=== PATIENT | female | born 1950 | race African-American/Black ===

== ENCOUNTER 2017-01-27 13:57 | Emergency (ER) | payer OTHER ==
[~2017-01-27] VITALS: Ht 165.1 cm; Wt 85.0 kg
[2017-01-27] MEDS ORDERED: SODIUM CHLORIDE 0.9% 1,000 ML IV ONE ×2 (14:21→15:30)
[2017-01-27 14:50] LABS: BASOPHILS % 0.8 % (0.0-2.0); EOSINOPHILS % 1.2 % (0.0-5.0); HEMATOCRIT. 42.1 % (36.0-48.0); HEMOGLOBIN. 14.3 g/dL (12.0-16.0); LYMPHOCYTES % 27.8 % (20.0-50.0); MEAN CORPUSCULAR HEMOGLOBIN 29.7 pg (28.0-32.0); MEAN CORPUSCULAR VOLUME 87.5 fL (81.0-99.0); MEAN PLATELET VOLUME 9.7 fl (7.4-10.4); MONOCYTES % 5.5 % (2.0-8.0); NEUTROPHILS % 64.7 % (40.0-76.0); PLATELET 251 x1000/uL (130-400); RED BLOOD CELL COUNT 4.81 mill/uL (4.2-5.4); RED CELL DISTRIBUTION WIDTH 13.5 % (11.6-14.6)
[2017-01-27 14:54] LABS: CHLORIDE 100 mEq/L (98-107)
[2017-01-27 15:02] LABS: CARBON DIOXIDE 24 mEq/L (21-32)
[2017-01-27 15:03] LABS: BETA HYDROXYBUTYRATE 0.2 mMol/L (0.0-0.3)
[2017-01-27 17:17] VITALS: BP 137/88
== END 2017-01-27 17:18 | disposition home or self-care (01) ==
LOC: ER 14:05
DX: E11.65 Type 2 diabetes mellitus with hyperglycemia (principal); E78.5 Hyperlipidemia, unspecified; E78.00 Pure hypercholesterolemia, unspecified; Z91.14 Patient's other noncompliance with medication regimen
CPT/HCPCS: 36415; 80053; 82010; 82962; 83690; 85025; 99284; J7030

== ENCOUNTER 2018-08-11 13:04 | Emergency (ER) | payer MEDICARE, OTHER ==
[~2018-08-11] VITALS: Ht 177.8 cm; Wt 81.0 kg
[2018-08-11 14:08] LABS: CHLORIDE 105 mEq/L (98-107)
[2018-08-11 14:18] LABS: BASOPHILS % 0.7 % (0.0-2.0); EOSINOPHILS % 2.1 % (0.0-5.0); HEMOGLOBIN. 13.9 g/dL (12.0-16.0); LYMPHOCYTES % 25.1 % (20.0-50.0); MEAN CORPUSCULAR HEMOGLOBIN 30.1 pg (28.0-32.0); MEAN PLATELET VOLUME 9.7 fl (7.4-10.4); MONOCYTES % 6.6 % (2.0-8.0); NEUTROPHILS % 65.5 % (40.0-76.0); PLATELET 271 x1000/uL (130-400); RED BLOOD CELL COUNT 4.62 mill/uL (4.2-5.4); RED CELL DISTRIBUTION WIDTH 13.9 % (11.6-14.6)
[2018-08-11] MEDS ORDERED: ASPIRIN 325MG EC TABLET PO ONE (15:00)
[2018-08-11] MEDS ORDERED: ACETAMINOPHEN WITH CODEINE 120-12MG/5ML UDC PO ONE (15:00)
[2018-08-11 18:30] VITALS: BP 132/76
== END 2018-08-11 18:30 | disposition left against medical advice (07) ==
LOC: ER 13:04 → EDBEDREQ 15:01 → ENRESERV 15:34 → ER 18:30 → CANBEDREQ 08-13 17:10
DX: I20.0 Unstable angina (principal); R07.89 Other chest pain; E11.65 Type 2 diabetes mellitus with hyperglycemia; J98.11 Atelectasis
CPT/HCPCS: 36415; 71045; 84484; 87804; 93005; 99284

== ENCOUNTER 2018-08-17 16:33 | Inpatient (IN) | payer MEDICARE, OTHER ==
[~2018-08-17] VITALS: Ht 154.9 cm; Wt 81.6 kg
[2018-08-17] MEDS ORDERED: ASPI-1159 PO (16:48)
[2018-08-17] MEDS ORDERED: GLIP10TA10 PO (16:48)
[2018-08-17] MEDS ORDERED: SITA50TA3 PO (16:49)
[2018-08-17] MEDS ORDERED: ALBUTEROL (0.083%) 2.5MG/3ML NEB HHN STA (17:02)
[2018-08-17 17:39] LABS: BASOPHILS % 0.6 % (0.0-2.0); EOSINOPHILS % 3.6 % (0.0-5.0); HEMATOCRIT. 42.5 % (36.0-48.0); HEMOGLOBIN. 14.1 g/dL (12.0-16.0); LYMPHOCYTES % 35.4 % (20.0-50.0); MEAN CORPUSCULAR HEMOGLOBIN 30.1 pg (28.0-32.0); MEAN CORPUSCULAR VOLUME 90.5 fL (81.0-99.0); MEAN PLATELET VOLUME 9.2 fl (7.4-10.4); MONOCYTES % 8.5 % (2.0-8.0); NEUTROPHILS % 51.9 % (40.0-76.0); PLATELET 316 x1000/uL (130-400); RED BLOOD CELL COUNT 4.69 mill/uL (4.2-5.4); RED CELL DISTRIBUTION WIDTH 13.7 % (11.6-14.6)
[2018-08-17 17:47] LABS: PROTHROMBIN TIME 9.6 sec (9.1-11.1)
[2018-08-17 17:51] LABS: CHLORIDE 99 mEq/L (98-107)
[2018-08-17] MEDS ORDERED: AZITHROMYCIN 500 MG in DEXT 5% WATER 250 ML IV STA (18:14)
[2018-08-17] MEDS ORDERED: SODIUM CHLORIDE 0.9% 1,000 ML IV ONE (18:19)
[2018-08-17] MEDS ORDERED: HYDROCODONE/ACETAMINOPHEN 5/325MG TABLET PO PRN (19:45)
[2018-08-17] MEDS ORDERED: DEXTROSE 50% WATER 50ML SYRINGE IV PRN (19:45)
[2018-08-17] MEDS ORDERED: HYDROMORPHONE HCL/PF 2MG/ML CPJ IV PRN (19:45)
[2018-08-17] MEDS ORDERED: ONDANSETRON HCL 4MG/2ML INJ IV PRN (20:00)
[2018-08-17] MEDS ORDERED: LORAZEPAM 2MG/ML CPJ IV PRN (20:00)
[2018-08-17] MEDS ORDERED: DOCUSATE SODIUM 100MG CAPSULE PO PRN (20:00)
[2018-08-17] MEDS ORDERED: CLONIDINE 0.1MG TABLET PO PRN (20:00)
[2018-08-17] MEDS ORDERED: ACETAMINOPHEN 325MG TABLET PO PRN (20:00)
[2018-08-17] MEDS ORDERED: NA PHOS,M-B/NA PHOS,DI-BA ENEMA 118ML PR PRN (20:00)
[2018-08-17] MEDS ORDERED: MAGNESIUM/ALUMINUM HYDROXIDE/SIMETHICONE 30ML UDC PO PRN (20:00)
[2018-08-17 20:57] LABS: CLARITY URINE CLEAR (CLEAR); COLOR URINE YELLOW (YELLOW); KETONES URINE NEGATIVE (NEGATIVE); LEUKOCYTE ESTERASE URINE NEGATIVE (NEGATIVE); NITRITE URINE NEGATIVE (NEGATIVE); OCCULT BLOOD URINE NEGATIVE (NEGATIVE); PH URINE 5.5 (4.5-8.0); PROTEIN URINE NEGATIVE (NEGATIVE); SPECIFIC GRAVITY URINE 1.015 (1.005-1.030); UROBILINOGEN URINE 0.2 E.U./dL (0.2-1.0)
[2018-08-17] MEDS: BLOOD SUGAR DIAGNOSTIC STRIP TEST SCH (21:00)
[2018-08-17] MEDS: INSULIN LISPRO 100 UNITS/ML SUBCUT SCH (21:03)
[2018-08-17 21:20] VITALS: BP 145/71
[2018-08-17 21:30] VITALS: BP 145/71
[2018-08-17] MEDS: SODIUM CHLORIDE 0.9% INJ 3ML FLUSH IVF SCH (22:00)
[2018-08-18] VITALS: BP 117/55
[2018-08-18] MEDS: GUAIFENESIN 200MG/10ML SUGAR FREE UDC PO PRN ×2 (02:51→20:07)
[2018-08-18] MEDS: SODIUM CHLORIDE 0.9% 1,000 ML IV SCH ×2 (02:51→17:18)
[2018-08-18 04:00] VITALS: BP 118/59
[2018-08-18] MEDS: IPRATROPIUM/ALBUTEROL 0.5-3(2.5)MG/3ML NEB INH PRN (05:50)
[2018-08-18] MEDS: SODIUM CHLORIDE 0.9% INJ 3ML FLUSH IVF SCH ×3 (06:05→21:09)
[2018-08-18] MEDS: BLOOD SUGAR DIAGNOSTIC STRIP TEST SCH ×4 (06:09→20:10)
[2018-08-18 07:08] LABS: CHLORIDE 104 mEq/L (98-107)
[2018-08-18 07:16] LABS: BASOPHILS % 0.8 % (0.0-2.0); EOSINOPHILS % 4.5 % (0.0-5.0); HEMATOCRIT. 38.3 % (36.0-48.0); HEMOGLOBIN. 12.9 g/dL (12.0-16.0); LYMPHOCYTES % 38.3 % (20.0-50.0); MEAN CORPUSCULAR HEMOGLOBIN 30.5 pg (28.0-32.0); MEAN CORPUSCULAR VOLUME 90.6 fL (81.0-99.0); MEAN PLATELET VOLUME 9.1 fl (7.4-10.4); MONOCYTES % 8.8 % (2.0-8.0); NEUTROPHILS % 47.6 % (40.0-76.0); PLATELET 307 x1000/uL (130-400); RED BLOOD CELL COUNT 4.23 mill/uL (4.2-5.4); RED CELL DISTRIBUTION WIDTH 13.8 % (11.6-14.6)
[2018-08-18 07:22] LABS: LDL CHOLESTEROL 149 mg/dL (5-100)
[2018-08-18 07:23] LABS: HDL CHOLESTEROL 27 mg/dL (40-59)
[2018-08-18 08:00] VITALS: BP 127/71
[2018-08-18] MEDS: ENOXAPARIN 40MG/0.4ML SYR SUBCUT SCH (08:52)
[2018-08-18] MEDS: ASPIRIN 81MG EC TABLET PO SCH (08:52)
[2018-08-18] MEDS: INSULIN LISPRO 100 UNITS/ML SUBCUT SCH ×4 (08:58→20:15)
[2018-08-18 12:00] VITALS: BP 121/62
[2018-08-18 16:00] VITALS: BP 108/66
[2018-08-18] MEDS ORDERED: AZITHROMYCIN 500 MG in DEXT 5% WATER 250 ML IV SCH ×2 (16:00→18:00)
[2018-08-18 20:00] VITALS: BP 115/67
[2018-08-19] VITALS: BP 126/69
[2018-08-19] MEDS: IPRATROPIUM/ALBUTEROL 0.5-3(2.5)MG/3ML NEB INH PRN (02:42)
[2018-08-19 04:00] VITALS: BP 121/52
[2018-08-19] MEDS: SODIUM CHLORIDE 0.9% INJ 3ML FLUSH IVF SCH (05:17)
[2018-08-19] MEDS: BLOOD SUGAR DIAGNOSTIC STRIP TEST SCH (07:25)
[2018-08-19] MEDS: ASPIRIN 81MG EC TABLET PO SCH (08:12)
[2018-08-19] MEDS: ENOXAPARIN 40MG/0.4ML SYR SUBCUT SCH (08:12)
[2018-08-19] MEDS: INSULIN LISPRO 100 UNITS/ML SUBCUT SCH (08:15)
== END 2018-08-19 10:43 | disposition home or self-care (01) | DRG 145 ==
LOC: ER 16:33 → 6EST 18:20 → EDBEDREQ 18:23 → EDBEDREQSVC 18:23 → ENRESERV 19:59
PROVIDERS: ADMIT Internal Medicine; ATTEND Internal Medicine
DX: J20.9 Acute bronchitis, unspecified (principal); E87.2 Acidosis; J21.9 Acute bronchiolitis, unspecified; E11.9 Type 2 diabetes mellitus without complications; Z79.84 Long term (current) use of oral hypoglycemic drugs; Z79.82 Long term (current) use of aspirin
CPT/HCPCS: 36415; 71045; 80061; 82962; 83605; 84145; 84484; 87804; 93005; 94640; 96365; 99285; J0456; J1650; J1815; J7060; J7611; J7620

== ENCOUNTER 2018-09-29 17:49 | Emergency (ER) | payer MEDICARE, OTHER ==
[~2018-09-29] VITALS: Ht 154.9 cm; Wt 82.7 kg
[~2018-09-29 17:49] MED LIST: ASPI-1159 PO; GLIP10TA10 PO; SITA50TA3 PO
[2018-09-29] MEDS ORDERED: TETRACAINE 0.5% OPHTH DROPS 4ML OP ONE (18:30)
[2018-09-29] MEDS ORDERED: FLUORESCEIN SODIUM 1MG/STRIP OP ONE (18:30)
[2018-09-29 19:02] LABS: BASOPHILS % 0.9 % (0.0-2.0); EOSINOPHILS % 1.6 % (0.0-5.0); HEMATOCRIT. 42.9 % (36.0-48.0); LYMPHOCYTES % 30.9 % (20.0-50.0); MEAN CORPUSCULAR HEMOGLOBIN 29.6 pg (28.0-32.0); MEAN CORPUSCULAR VOLUME 90.3 fL (81.0-99.0); MEAN PLATELET VOLUME 9.7 fl (7.4-10.4); MONOCYTES % 6.4 % (2.0-8.0); NEUTROPHILS % 60.2 % (40.0-76.0); PLATELET 277 x1000/uL (130-400); RED BLOOD CELL COUNT 4.75 mill/uL (4.2-5.4); RED CELL DISTRIBUTION WIDTH 14.3 % (11.6-14.6)
[2018-09-29 19:06] LABS: CHLORIDE 106 mEq/L (98-107)
[2018-09-29 19:07] LABS: INR 0.9; PROTHROMBIN TIME 9.5 sec (9.1-11.1)
[2018-09-29 20:21] VITALS: BP 164/68
== END 2018-09-29 20:24 | disposition home or self-care (01) ==
LOC: ER 19:49
DX: G51.0 Bell's palsy (principal); E11.65 Type 2 diabetes mellitus with hyperglycemia; Z79.84 Long term (current) use of oral hypoglycemic drugs
CPT/HCPCS: 36415; 82962; 93005; 99284

== ENCOUNTER → 2022-01-23 | Day surgery (SDC) | payer MEDICARE, OTHER ==
[~2022-01-23] VITALS: Ht 154.9 cm; Wt 78.5 kg
[~2022-01-23] MED LIST changes: +ACETYLCHOLINE CHLORIDE INTRAOCULAR SOLUTION 1:100 ELECTROLYTE DILUENT IO ONE; +ASCO-339 PO; -ASPI-1159 PO; +ASPI-1497 PO; +ATOR20TA65 PO; +BALANCED SALT IRRIG SOLN 15ML ONE; +CALC-26 PO; +CYCLOPENTOLATE HCL 1% OPHTH DROPS 2ML ONE; +CYCLOPENTOLATE HCL 1% OPHTH DROPS 2ML RIGHTEYE NR; +FENTANYL CITRATE/PF 50MCG/ML 2ML VIAL ONE; +HYALURONATE SODIUM 10 MG/ML 0.55ML SYRINGE IO ONE; +KETOROLAC 30MG/ML VIAL ONE; +LIDOCAINE HCL/PF 2% 20 MG/ML 10ML VIAL ONE; +MIDAZOLAM HCL 2 MG/2 ML VIAL ONE; +NEO/POLYMYX B SULF/DEXAMETH OPHTH OINT 3.5GM ONE; +PHENYLEPHRINE HCL 10% OPHTH DROPS 5ML ONE; +PHENYLEPHRINE HCL 10% OPHTH DROPS 5ML RIGHTEYE NR; +PILOCARPINE HCL 2% OPHTH DROPS 15ML ONE; +PREDNISOLONE ACETATE 1% OPHTH DROPS 5ML ONE; +SITA1TAB6 PO; -SITA50TA3 PO; +SODIUM CHLORIDE 0.9% 1,000 ML IV SCH; +TETRACAINE 0.5% OPHTH DROPS 4ML ONE; +TROPICAMIDE 1% OPHTH DROPS 15ML ONE; +TROPICAMIDE 1% OPHTH DROPS 15ML RIGHTEYE SCH; +TYLENOL ARTHRITIS PO
== END | disposition home or self-care (01) ==
LOC: OR 07:17
PROVIDERS: ATTEND Ophthalmology
DX: E11.36 Type 2 diabetes mellitus with diabetic cataract (principal); H25.89 Other age-related cataract; E78.00 Pure hypercholesterolemia, unspecified; E11.319 Type 2 diabetes mellitus with unspecified diabetic retinopathy without macular edema; M19.90 Unspecified osteoarthritis, unspecified site; E11.65 Type 2 diabetes mellitus with hyperglycemia; Z79.82 Long term (current) use of aspirin; Z79.84 Long term (current) use of oral hypoglycemic drugs; Z79.899 Other long term (current) drug therapy; Z98.890 Other specified postprocedural states; Z20.822 Contact with and (suspected) exposure to COVID-19
CPT/HCPCS: 66982; 82962; 87426; C1893; J1885; J2250; J3010; J3490; V2632

== ENCOUNTER → 2022-04-24 | Day surgery (SDC) | payer MEDICARE, OTHER ==
[~2022-04-24] VITALS: Ht 154.9 cm; Wt 78.5 kg
[~2022-04-24] MED LIST changes: +BALANCED SALT IRRIG SOLN COMB1 500ML OP NR; +BUPIVACAINE HCL/PF 0.75% (7.5MG/ML) 10ML ONE; +CIPROFLOXACIN 0.3% OPHTH SOLN 2.5ML ONE; -CYCLOPENTOLATE HCL 1% OPHTH DROPS 2ML RIGHTEYE NR; -KETOROLAC 30MG/ML VIAL ONE; +LIDOCAINE HCL 2%/EPINEPHRINE 1:100,000 20 ML VIAL INFIL ONE; -NEO/POLYMYX B SULF/DEXAMETH OPHTH OINT 3.5GM ONE; -PHENYLEPHRINE HCL 10% OPHTH DROPS 5ML RIGHTEYE NR; -PILOCARPINE HCL 2% OPHTH DROPS 15ML ONE; +PROPOFOL 200MG/20ML VIAL IV ONE; -TROPICAMIDE 1% OPHTH DROPS 15ML RIGHTEYE SCH; +TRYPAN BLUE 0.5 ML DISP.SYRIN IO ONE
== END | disposition home or self-care (01) ==
LOC: OR 05:15
PROVIDERS: ATTEND Ophthalmology
DX: E11.36 Type 2 diabetes mellitus with diabetic cataract (principal); H25.22 Age-related cataract, morgagnian type, left eye; E78.00 Pure hypercholesterolemia, unspecified; M19.90 Unspecified osteoarthritis, unspecified site; Z79.82 Long term (current) use of aspirin; Z79.84 Long term (current) use of oral hypoglycemic drugs; Z98.890 Other specified postprocedural states; Z20.822 Contact with and (suspected) exposure to COVID-19
CPT/HCPCS: 66982; 67005; 82962; 87426; C9803; J2250; J2704; J3010; J3490; V2632; Q9957

== ENCOUNTER 2022-06-16 17:44 | Emergency (ER) | payer MEDICARE, OTHER ==
[~2022-06-16] VITALS: Ht 157.5 cm; Wt 72.0 kg
[~2022-06-16 17:44] MED LIST changes: -ACETYLCHOLINE CHLORIDE INTRAOCULAR SOLUTION 1:100 ELECTROLYTE DILUENT IO ONE; -BALANCED SALT IRRIG SOLN 15ML ONE; -BALANCED SALT IRRIG SOLN COMB1 500ML OP NR; -BUPIVACAINE HCL/PF 0.75% (7.5MG/ML) 10ML ONE; -CALC-26 PO; -CIPROFLOXACIN 0.3% OPHTH SOLN 2.5ML ONE; -CYCLOPENTOLATE HCL 1% OPHTH DROPS 2ML ONE; -FENTANYL CITRATE/PF 50MCG/ML 2ML VIAL ONE; -HYALURONATE SODIUM 10 MG/ML 0.55ML SYRINGE IO ONE; -LIDOCAINE HCL 2%/EPINEPHRINE 1:100,000 20 ML VIAL INFIL ONE; -LIDOCAINE HCL/PF 2% 20 MG/ML 10ML VIAL ONE; -MIDAZOLAM HCL 2 MG/2 ML VIAL ONE; -PHENYLEPHRINE HCL 10% OPHTH DROPS 5ML ONE; -PREDNISOLONE ACETATE 1% OPHTH DROPS 5ML ONE; -PROPOFOL 200MG/20ML VIAL IV ONE; -SODIUM CHLORIDE 0.9% 1,000 ML IV SCH; -TETRACAINE 0.5% OPHTH DROPS 4ML ONE; -TROPICAMIDE 1% OPHTH DROPS 15ML ONE; -TRYPAN BLUE 0.5 ML DISP.SYRIN IO ONE
[2022-06-16] MEDS ORDERED: HYDROCODONE/ACETAMINOPHEN 5/325MG TABLET PO ONE (18:45)
[2022-06-16] MEDS ORDERED: HYDR-4001 MT (23:03)
[2022-06-16 23:30] VITALS: BP 114/70
== END 2022-06-16 23:30 | disposition home or self-care (01) ==
LOC: ER 17:44
DX: M25.559 Pain in unspecified hip (principal); E11.9 Type 2 diabetes mellitus without complications; E78.00 Pure hypercholesterolemia, unspecified; W01.0XXA Fall on same level from slipping, tripping and stumbling without subsequent striking against object, initial encounter; Y93.9 Activity, unspecified; Y92.9 Unspecified place or not applicable; Z79.82 Long term (current) use of aspirin
CPT/HCPCS: 72131; 72192; 99284

== ENCOUNTER 2022-11-06 19:16 | Inpatient (IN) | payer MEDICARE, OTHER ==
[~2022-11-06] VITALS: Ht 157.5 cm; Wt 79.6 kg
[~2022-11-06 19:16] MED LIST changes: +HYDR-4001 MT
[2022-11-07] MEDS ORDERED: ASPIRIN 325MG EC TABLET PO ONE (01:00)
[2022-11-07] MEDS ORDERED: ONDANSETRON HCL 4MG/2ML INJ IV ONE (01:00)
[2022-11-07] MEDS ORDERED: MORPHINE SULFATE 2 MG/ML CPJ (NOT FOR IM USE) IV ONE (01:00)
[2022-11-07 01:14] LABS: BASOPHILS % 0.4 % (0.0-2.0); EOSINOPHILS % 0.3 % (0.0-5.0); HEMOGLOBIN. 13.1 g/dL (12.0-16.0); LYMPHOCYTES % 18.8 % (20.0-50.0); MEAN CORPUSCULAR HEMOGLOBIN 29.6 pg (28.0-32.0); MEAN CORPUSCULAR VOLUME 90.3 fL (81.0-99.0); MEAN PLATELET VOLUME 9.8 fl (7.4-10.4); MONOCYTES % 5.3 % (2.0-8.0); NEUTROPHILS % 75.2 % (40.0-76.0); PLATELET 263 x1000/uL (130-400); RED BLOOD CELL COUNT 4.43 mill/uL (4.2-5.4); RED CELL DISTRIBUTION WIDTH 14.2 % (11.6-14.6)
[2022-11-07 01:36] LABS: CHLORIDE 95 mEq/L (98-107)
[2022-11-07] MEDS ORDERED: KETOROLAC 15MG/ML VIAL IV PRN (11:45)
[2022-11-07] MEDS ORDERED: GUAIFENESIN 200MG/10ML SUGAR FREE UDC PO PRN (11:45)
[2022-11-07] MEDS ORDERED: IPRATROPIUM/ALBUTEROL 0.5-3(2.5)MG/3ML NEB NEB PRN (11:45)
[2022-11-07] MEDS ORDERED: ACETAMINOPHEN 325MG TABLET PO PRN ×2 (11:45)
[2022-11-07] MEDS ORDERED: DOCUSATE SODIUM 100MG CAPSULE PO PRN (11:45)
[2022-11-07] MEDS ORDERED: CLONIDINE 0.1MG TABLET PO PRN (11:45)
[2022-11-07] MEDS ORDERED: NITROGLYCERIN 0.4MG TABLET SL SL PRN (11:45)
[2022-11-07] MEDS ORDERED: MAGNESIUM/ALUMINUM HYDROXIDE/SIMETHICONE 30ML UDC PO PRN (11:45)
[2022-11-07] MEDS ORDERED: ONDANSETRON HCL 4MG/2ML INJ IV PRN (11:45)
[2022-11-07 12:00] VITALS: BP 126/95
[2022-11-07] MEDS ORDERED: IPRATROPIUM BROMIDE (0.02%) 0.5MG/2.5ML NEB HHN PRN (12:00)
[2022-11-07] MEDS ORDERED: ALBUTEROL (0.083%) 2.5MG/3ML NEB HHN PRN (12:00)
[2022-11-07] MEDS: AMLODIPINE 10MG TABLET PO SCH (15:29)
[2022-11-07] MEDS: ENOXAPARIN 40MG/0.4ML SYR SUBCUT SCH (15:29)
[2022-11-07 16:00] VITALS: BP 110/51
[2022-11-07] MEDS ORDERED: IOHEXOL-350 100 ML BOTTLE ONE (16:49)
[2022-11-07 17:46] LABS: CREATINE KINASE 22 IU/L (26-192); CREATINE KINASE MB FRACTION < 1.0 ng/mL (0.5-3.6)
[2022-11-07 17:51] LABS: T4 FREE 0.79 ng/dL (0.76-1.46)
[2022-11-07 18:17] LABS: VITAMIN B12 SERUM 187 pg/mL (211-911)
[2022-11-07 18:25] LABS: *AMPHETAMINES SCREEN URINE NEGATIVE (NEGATIVE); *BARBITURATES SCREEN URINE NEGATIVE (NEGATIVE); *BENZODIAZEPINES SCREEN URINE NEGATIVE (NEGATIVE); *COCAINE SCREEN URINE NEGATIVE (NEGATIVE); CANNABINOID URINE SCREEN NEGATIVE (NEGATIVE); METHADONE URINE SCREEN NEGATIVE (NEGATIVE); OPIATES URINE SCREEN PRESUMTIVE POSITIVE (NEGATIVE); PHENCYCLIDINE URINE SCREEN NEGATIVE (NEGATIVE)
[2022-11-07 20:00] VITALS: BP 112/55
[2022-11-07] MEDS ORDERED: ZOLPIDEM TARTRATE 5MG TABLET PO PRN (21:00)
[2022-11-07] MEDS: FAMOTIDINE 20MG TABLET PO SCH (21:48)
[2022-11-07] MEDS: ATORVASTATIN CALCIUM 40MG TABLET PO SCH (21:48)
[2022-11-08] VITALS: BP 104/53
[2022-11-08 00:20] LABS: CREATINE KINASE 24 IU/L (26-192); CREATINE KINASE MB FRACTION < 1.0 ng/mL (0.5-3.6)
[2022-11-08 04:00] VITALS: BP 118/52
[2022-11-08 06:48] LABS: BASOPHILS % 0.5 % (0.0-2.0); EOSINOPHILS % 0.7 % (0.0-5.0); HEMATOCRIT. 36.6 % (36.0-48.0); LYMPHOCYTES % 18.8 % (20.0-50.0); MEAN CORPUSCULAR HEMOGLOBIN 29.5 pg (28.0-32.0); MEAN PLATELET VOLUME 10.3 fl (7.4-10.4); MONOCYTES % 7.2 % (2.0-8.0); NEUTROPHILS % 72.8 % (40.0-76.0); PLATELET 226 x1000/uL (130-400); RED BLOOD CELL COUNT 4.06 mill/uL (4.2-5.4); RED CELL DISTRIBUTION WIDTH 14.3 % (11.6-14.6)
[2022-11-08 08:00] VITALS: BP 99/39
[2022-11-08 08:21] LABS: PHOSPHORUS 3.6 mg/dL (2.5-4.9)
[2022-11-08] MEDS: FAMOTIDINE 20MG TABLET PO SCH ×2 (08:54→21:11)
[2022-11-08] MEDS: ASPIRIN 81MG EC TABLET PO SCH (08:54)
[2022-11-08] MEDS: AMLODIPINE 10MG TABLET PO SCH (08:55)
[2022-11-08] MEDS ORDERED: ASPIRIN 325MG EC TABLET PO SCH (09:00)
[2022-11-08 12:00] VITALS: BP 100/48
[2022-11-08] MEDS: ENOXAPARIN 40MG/0.4ML SYR SUBCUT SCH (12:24)
[2022-11-08 16:00] VITALS: BP 116/51
[2022-11-08 19:52] VITALS: BP 134/54
[2022-11-08 20:37] LABS: FOLIC ACID (FOLATE) SERUM > 20.00 ng/mL (>5.38)
[2022-11-08] MEDS: ATORVASTATIN CALCIUM 40MG TABLET PO SCH (21:10)
[2022-11-09 00:19] VITALS: BP 134/58
[2022-11-09 04:30] VITALS: BP 108/41
[2022-11-09 08:00] VITALS: BP 120/44
[2022-11-09] MEDS ORDERED: IODIXANOL 320MG/ML 100 ML BOTTLE IV ONE (08:53)
[2022-11-09] MEDS ORDERED: VERAPAMIL HCL 2.5 MG/1 ML 2ML VIAL IV ONE (08:56)
[2022-11-09] MEDS ORDERED: LIDOCAINE HCL/PF 1% 10 MG/ML 5ML VIAL ONE (08:56)
[2022-11-09] MEDS ORDERED: MIDAZOLAM HCL 2 MG/2 ML VIAL ONE (08:57)
[2022-11-09] MEDS ORDERED: FENTANYL CITRATE/PF 50MCG/ML 2ML VIAL ONE (08:57)
[2022-11-09] MEDS ORDERED: HEPARIN 1000 UNITS/ML 10ML ONE (08:57)
[2022-11-09] MEDS: AMLODIPINE 10MG TABLET PO SCH (09:00)
[2022-11-09] MEDS: ASPIRIN 81MG EC TABLET PO SCH (09:00)
[2022-11-09] MEDS: FAMOTIDINE 20MG TABLET PO SCH ×2 (09:00→20:40)
[2022-11-09] MEDS ORDERED: NICARDIPINE 100MCG/ML 10ML VIAL (CATH LAB) IV ONE (09:29)
[2022-11-09] MEDS ORDERED: NITROGLYCERIN 50MCG/ML 10ML VIAL (CATH LAB) IV ONE (09:29)
[2022-11-09] MEDS: ENOXAPARIN 40MG/0.4ML SYR SUBCUT SCH (15:50)
[2022-11-09 16:29] VITALS: BP 111/40
[2022-11-09 19:59] VITALS: BP 98/62
[2022-11-09] MEDS: ATORVASTATIN CALCIUM 40MG TABLET PO SCH (20:40)
[2022-11-10] VITALS: BP 120/53
[2022-11-10 04:10] VITALS: BP 114/50
[2022-11-10 08:00] VITALS: BP 114/54
[2022-11-10] MEDS ORDERED: LIP40 PO (08:13)
[2022-11-10] MEDS ORDERED: METO25TA6 MT (08:13)
[2022-11-10] MEDS: FAMOTIDINE 20MG TABLET PO SCH (09:24)
[2022-11-10] MEDS: ASPIRIN 81MG EC TABLET PO SCH (09:24)
[2022-11-10] MEDS: AMLODIPINE 10MG TABLET PO SCH (09:24)
[2022-11-10] MEDS ORDERED: METOPROLOL SUCCINATE 50MG ER TABLET PO SCH (10:15)
[2022-11-10] MEDS: ENOXAPARIN 40MG/0.4ML SYR SUBCUT SCH (11:32)
[2022-11-10 12:00] VITALS: BP 118/55
[2022-11-10 14:24] VITALS: BP 126/58
[2022-11-10 16:00] VITALS: BP 126/58
== END 2022-11-10 16:00 | disposition home or self-care (01) | DRG 191 ==
LOC: ER 19:16 → 7WST 11-07 08:25 → SUPCPDRO 11-07 10:27
PROVIDERS: ADMIT Internal Medicine; ATTEND Internal Medicine
PROC: 4A023N7 Measurement of Cardiac Sampling and Pressure, Left Heart, Percutaneous Approach (ICD-10-PCS; principal; 2022-11-08)
PROC: B2111ZZ Fluoroscopy of Multiple Coronary Arteries using Low Osmolar Contrast (ICD-10-PCS; 2022-11-08)
DX: I25.110 Atherosclerotic heart disease of native coronary artery with unstable angina pectoris (principal); E87.1 Hypo-osmolality and hyponatremia; E11.9 Type 2 diabetes mellitus without complications; D72.829 Elevated white blood cell count, unspecified; E78.00 Pure hypercholesterolemia, unspecified; E78.5 Hyperlipidemia, unspecified; I16.0 Hypertensive urgency; I10 Essential (primary) hypertension; Z20.822 Contact with and (suspected) exposure to COVID-19; Z79.4 Long term (current) use of insulin; Z79.84 Long term (current) use of oral hypoglycemic drugs
CPT/HCPCS: 36415; 71045; 71275; 74174; 80053; 80061; 80305; 82550; 82553; 82607; 82746; 83036; 83540; 83550; 83735; 83880; 84100; 84439; 84443; 84484; 85025; 87426; 93005; 93306; 93458; 93970; 97162; 99285; C1769; C1887; C1893; C9803; J1644; J1650; J2250; J2270; J2405; J3010; J3490; Q9967

== ENCOUNTER 2023-03-21 04:37 | Emergency (ER) | payer MEDICARE, OTHER ==
[~2023-03-21] VITALS: Ht 167.6 cm; Wt 90.0 kg
[~2023-03-21 04:37] MED LIST changes: -ATOR20TA65 PO; -HYDR-4001 MT; +LIP40 PO; +METO25TA6 MT
[2023-03-21 04:40] VITALS: O2SAT 99
[2023-03-21] MEDS ORDERED: KETOROLAC 30MG/ML VIAL IM ONE (05:00)
[2023-03-21] MEDS ORDERED: TOPUD PO (06:59)
[2023-03-21 07:20] VITALS: BP 151/65; PULSE 74; RESP 20; TEMP 97.8
== END 2023-03-21 07:20 | disposition home or self-care (01) ==
LOC: ER 04:51
DX: M25.551 Pain in right hip (principal); M54.9 Dorsalgia, unspecified; E11.9 Type 2 diabetes mellitus without complications; E78.00 Pure hypercholesterolemia, unspecified; W18.30XA Fall on same level, unspecified, initial encounter; Y93.89 Activity, other specified; Y92.89 Other specified places as the place of occurrence of the external cause; Y99.8 Other external cause status
CPT/HCPCS: 99284; 73502; 72100; 96372; J1885

== ENCOUNTER 2024-03-30 10:01 | Emergency (ER) | payer MEDICARE, OTHER ==
[~2024-03-30] VITALS: Ht 157.5 cm; Wt 73.0 kg
[~2024-03-30 10:01] MED LIST changes: +TOPUD PO
[2024-03-30 10:07] VITALS: BP 163/85; PULSE 87; RESP 20; TEMP 98; O2SAT 95
[2024-03-30] MEDS: ACETAMINOPHEN 500MG TABLET PO ONE (10:50)
[2024-03-30] MEDS ORDERED: LIDO700A15 TP (11:46)
[2024-03-30] MEDS ORDERED: NAPR-1176 MT (11:46)
== END 2024-03-30 12:05 | disposition home or self-care (01) ==
LOC: ER 10:01
DX: R07.81 Pleurodynia (principal); R07.89 Other chest pain; E11.9 Type 2 diabetes mellitus without complications; E78.00 Pure hypercholesterolemia, unspecified; Z79.899 Other long term (current) drug therapy
CPT/HCPCS: 71046; 71100; 99284

== ENCOUNTER 2025-01-02 11:49 | Emergency (ER) | payer MEDICARE, OTHER ==
[~2025-01-02] VITALS: Ht 162.6 cm; Wt 70.0 kg
[~2025-01-02 11:49] MED LIST changes: -GLIP10TA10 PO; +GLIP10TA17 PO; +LIDO-53 TP; +NAPR-1176 MT
[2025-01-02 11:52] VITALS: O2SAT 99
[2025-01-02] MEDS: SODIUM CHLORIDE 0.9% 1,000 ML IV ONE (12:15)
[2025-01-02 12:27] LABS: BASOPHILS % 1.3 % (0.0-2.0); EOSINOPHILS % 1.7 % (0.0-5.0); HEMATOCRIT. 42.1 % (36.0-48.0); HEMOGLOBIN. 13.9 g/dL (12.0-16.0); LYMPHOCYTES % 41.3 % (20.0-50.0); MEAN CORPUSCULAR HGB CONC 32.9 g/dL (31.0-37.0); MEAN CORPUSCULAR VOLUME 88.1 fL (81.0-99.0); MEAN PLATELET VOLUME 9.5 fl (7.4-10.4); MONOCYTES % 5.9 % (2.0-8.0); NEUTROPHILS % 49.8 % (40.0-76.0); PLATELET 256 x1000/uL (130-400); RED BLOOD CELL COUNT 4.78 mill/uL (4.2-5.4); RED CELL DISTRIBUTION WIDTH 15.5 % (11.6-14.6); WHITE BLOOD COUNT 12.8 x1000/uL (4.5-11.0)
[2025-01-02 12:32] LABS: CHLORIDE 102 mEq/L (98-107); POTASSIUM 3.9 mEq/L (3.5-5.1); SODIUM 136 mEq/L (136-145)
[2025-01-02 12:33] LABS: CALCIUM 9.4 mg/dL (8.7-10.4); CARBON DIOXIDE 27 mEq/L (21-32)
[2025-01-02 12:38] LABS: CREATININE 0.9 mg/dL (0.6-1.0); GLUCOSE 382 mg/dL (70-105); UREA NITROGEN BLOOD 16 mg/dL (9-23)
[2025-01-02 12:45] LABS: TROPONIN I HIGH SENSITIVITY < 4 ng/L (3.0-34)
[2025-01-02 13:59] VITALS: BP 156/60; PULSE 90; RESP 20; TEMP 36.9; O2SAT 99
== END 2025-01-02 14:00 | disposition home or self-care (01) ==
LOC: ER 12:02 → CANBEDREQ 13:35 → ER 14:00
DX: R53.1 Weakness (principal); E11.9 Type 2 diabetes mellitus without complications; Z79.899 Other long term (current) drug therapy; Z79.84 Long term (current) use of oral hypoglycemic drugs; Z79.1 Long term (current) use of non-steroidal anti-inflammatories (NSAID)
CPT/HCPCS: 99285; 96360; 71045; 80048; 83880; 85025; 84484; 36415; 93005; J7030